=== PATIENT | female | born 1995 | race Caucasian/White ===

== ENCOUNTER 2017-07-06 17:30 | Inpatient (IN) | payer OTHER ==
[~2017-07-06 17:30] MED LIST: Bupivacaine/Epinephrine 0.25% 30 ML VIAL ONE; Lidocaine 2% PF 5 ML VIAL ONE
[2017-07-06] MEDS ORDERED: Ondansetron HCl/PF 4 MG/2 ML Vial IVP PRN (19:15)
[2017-07-06] MEDS ORDERED: Ibuprofen 800 MG TAB PO PRN (19:15)
[2017-07-06] MEDS ORDERED: Promethazine HCl 25 MG/ML VIAL IM PRN (19:15)
[2017-07-06] MEDS ORDERED: LR / Pitocin 40 units/1000 ml 1,000 ML IV PRN (19:15)
[2017-07-06] MEDS ORDERED: Lidocaine 1% (PF) 30 ML VIAL SC PRN (19:15)
[2017-07-06] MEDS ORDERED: Acetaminophen 500 MG TAB PO PRN (19:15)
[2017-07-06] MEDS ORDERED: Misoprostol 200 MCG TAB PR PRN (19:15)
[2017-07-06] MEDS ORDERED: LR 500 ML/Oxytocin 10 units 500 ML IV SCH (19:15)
[2017-07-06] MEDS ORDERED: HYDROcodone/Acetaminophen 5/325 mg Tablet PO PRN ×2 (19:15)
[2017-07-06 19:40] LABS: Hematocrit 40.8 % (36.0-47.0); Mean Platelet Volume 7.9 fL (7.4-10.4); Red Blood Cell (RBC) Count 4.55 mill/uL (4.20-5.40)
[2017-07-06 20:14] VITALS: BMI 22.1
[2017-07-06] MEDS: Lactated Ringer's 1,000 ML IV SCH (20:30)
--- NOTE | 2017-07-06 21:33 | PDOC.LDHP ---
Labor and Delivery H&P Chief complaint: other HPI: patient was seen in the clinic for a second opinion from the CPM at [facility]. Patient has been florencia for 3 days, with little rest. Pt is also having sharp pain on the left lower quadrant in betweeen contractions. Periodic exam from the CPM were reported by the patient as normal vitals for both mother and fetus. Pt reports continually urinating on herself, but stated she was certain it was urine. O bjective: At [facility], a bedside US showed tachycardia and oligohydraminos. Cervical exam /0 with hair palpated through cervix made me suspicious of SROM. A sterile speculum exam was performed with positive pooling and positive nitrazine. Pt is GBS neg. Because of the unknown time or lenght of rupture it was my clinical recommendation to be admitted to [facility] L&D for IOL. Patient agreed on POC and their primary CPM was contacted and notified. Current gestational age (weeks): 37 Due date: 07/27/17 Dating criteria: last menstrual period Grav: 1 Para: 0 OB History Details: BV, unknowntime of rupture Abnormal US findings: No Current medications: pre- vitamins Previous surgical history: none (sinus surgery) Allergies/Adverse Reactions: Allergies Allergy/AdvReac Type Severity Reaction Status Date / Time No Allergy Information Allergy Verified 07/06/17 20:59 Available Social history: none - Physical Exam Vital signs reviewed and normal: yes General: NAD Heart: RRR Lungs: CTAB Abdomen: gravid Extremeties: no edema FHT: category 1 - Vaginal Exam cm dilated: 2 Effacement: 75% Station: 0 - OB Labs Blood type: A RH: positive Antibody Screen: negative HIV: negative RPR: negative HEPSAg: negative 1 hour GCT: negative GBS: negative Urine drug screen: not done Rubella: immune - Assessment L&D Assessment: term rupture in membranes (for unknown length of time. Medically indicated IOL)
[2017-07-06] MEDS ORDERED: Fentanyl 4 mcg/Marc 0.1% Cadd 100 ML ONE (23:43)
[2017-07-07] MEDS: Fentanyl 4mcg/Marcaine 0.1% Cassette 100 ML EPIDURAL SCH ×2 (00:25→06:10)
[2017-07-07] MEDS: Lactated Ringer's 1,000 ML IV SCH ×3 (00:25→15:39)
[2017-07-07] MEDS ORDERED: Eucerin (Mineral Oil/Petrolatum,White) 30 gm Jar TOP PRN (00:42)
[2017-07-07] MEDS ORDERED: Lactated Ringer's 500 ML IV PRN (00:42)
[2017-07-07] MEDS ORDERED: Promethazine HCl 25 MG/ML VIAL IM PRN (00:42)
[2017-07-07] MEDS ORDERED: ePHEDrine/0.9% NaCl/PF SYRINGE 50 mg/10 ml SLOW IVP PRN (00:42)
[2017-07-07] MEDS ORDERED: Acetaminophen 325 MG TAB PO PRN (00:42)
[2017-07-07] MEDS ORDERED: Naloxone HCl 0.4 mg/ml Vial IVP PRN ×2 (00:42)
[2017-07-07] MEDS ORDERED: diphenhydrAMINE 50 MG/ML VIAL IVP PRN (00:42)
[2017-07-07] MEDS ORDERED: Ondansetron HCl/PF 4 MG/2 ML Vial IVP PRN ×2 (00:42→09:49)
[2017-07-07] MEDS ORDERED: Communication Order-Pharmacy FS SCH (00:45)
[2017-07-07] MEDS ORDERED: CEFAZOLIN/Water 2 GM/20 ML SYRINGE ONE (07:38)
[2017-07-07] MEDS ORDERED: Acetaminophen 500 MG TAB PO PRN (08:29)
[2017-07-07] MEDS ORDERED: Gentamicin 80 MG/2 ML VIAL IVPB SCH (08:30)
[2017-07-07 08:31] LABS: Base Excess -2.1 mEq/L (0 (+/- 2.5)); pH (venous) 7.37 (7.25-7.35)
--- NOTE | 2017-07-07 08:38 | PDOC.OPDEL ---
OB Operative/Delivery Note Delivery Dr/Surgeon: Sandhya Coppola CNM Pre-Delivery Diagnosis: medically indicated induction (for SROM for unknown length of time.) Procedure/Post Delivery Dx: spontaneous vaginal delivery Weeks gestation: 37 Anesthesia: epidural - Findings A Sex: male Weight: 6 lb 3.79 oz - 1 min: 7 - 5 min: 9 - Additional Findings/Plan Placenta delivered: spontaneous Repaired Obstetrical Laceration: none Estimated blood loss: 400mL Compilations/Other Findings: AT approximately 0440 this am the RN notified STEPHANIE of deep recurrent variable decelerations with contractions. FHT baseline was 145-150 bpms at that time. Pitocin was stopped and maternal oxygenation. Maternal fever prior to delivery and tachycardia. Antibiotics started for chorioamnionities and Neonatology team called to delivery. Following delivery of the fetus, maternal tachycardia was noted with a range of 140-160bpms. I doned sterile gloves and removed several small clots approximately 200ml worth from the lower uterine segment. pt tolerated procedure well. fundus was firm. Post delivery plan: routine recovery (Continue antibiotics for chorioamnionitis for the next 24 hours. Treat maternal fever with tylenol.)
[2017-07-07] MEDS ORDERED: Gentamicin Sulfate 290 MG in Sodium Chloride 0.9% 100 ML IVPB SCH ×2 (09:15→09:30)
[2017-07-07] MEDS ORDERED: Milk Of Magnesia 30 ML UDCUP PO PRN (09:49)
[2017-07-07] MEDS ORDERED: Measles/Mumps/Rubella 10 MCG/0.5 ML VIAL SC ONE (09:49)
[2017-07-07] MEDS ORDERED: Benzocaine/Menthol 20-0.5% 60 ML CAN TOP PRN (09:49)
[2017-07-07] MEDS ORDERED: Adacel (T-DAP) 0.5 ML VIAL IM ONE (09:49)
[2017-07-07] MEDS ORDERED: LR / Pitocin 40 units/1000 ml 1,000 ML IV SCH (09:49)
[2017-07-07] MEDS ORDERED: Lanolin Ointment 7 GM TUBE TOP PRN (09:49)
[2017-07-07] MEDS ORDERED: Misoprostol 200 MCG TAB VAG SCH (09:49)
[2017-07-07] MEDS ORDERED: Bisacodyl 10 MG SUPP PR PRN (09:49)
[2017-07-07] MEDS ORDERED: HYDROcodone/Acetaminophen 5/325 mg Tablet PO PRN ×2 (09:49)
[2017-07-07] MEDS ORDERED: Docusate Calcium (SURFAK) 240 MG CAP PO SCH (10:15)
[2017-07-07] MEDS ORDERED: Prenatal Vitamin 1 TAB PO SCH (10:15)
[2017-07-07] MEDS: Ibuprofen 800 MG TAB PO SCH ×2 (14:38→22:34)
[2017-07-07] MEDS: CEFAZOLIN/Water 2 GM/20 ML SYRINGE SLOW IVP SCH (17:25)
[2017-07-07] MEDS: Ferrous Sulfate 325 MG TAB PO SCH (17:26)
[2017-07-07] MEDS ORDERED: Sodium Chloride 0.9% 10 ML ONE (21:26)
[2017-07-07] MEDS: Docusate Calcium (SURFAK) 240 MG CAP PO SCH (22:35)
[2017-07-08] MEDS: CEFAZOLIN/Water 2 GM/20 ML SYRINGE SLOW IVP SCH ×2 (00:53→08:49)
[2017-07-08 06:06] LABS: Hematocrit 27.6 % (36.0-47.0); Mean Platelet Volume 6.9 fL (7.4-10.4); Red Blood Cell (RBC) Count 3.02 mill/uL (4.20-5.40); White Blood Cell (WBC) Count 13.9 thou/uL (4.8-10.8)
[2017-07-08] MEDS: Ibuprofen 800 MG TAB PO SCH ×3 (06:43→21:38)
[2017-07-08] MEDS: Prenatal Vitamin 1 TAB PO SCH (08:47)
[2017-07-08] MEDS: Docusate Calcium (SURFAK) 240 MG CAP PO SCH ×2 (08:47→21:38)
[2017-07-08] MEDS: Ferrous Sulfate 325 MG TAB PO SCH ×2 (08:48→17:53)
--- NOTE | 2017-07-08 11:37 | PDOC.PP ---
Post Progress Note Post Day #: 1 Subjective: pt is feeling well. a little soreness of her perineum. No concerns. Is pumping. PO intake tolerated: yes Flatus: yes Ambulation: yes Vital Signs (12 hours) Temp Pulse Resp BP 07/08/17 08:10 97.8 F 92 16 07/08/17 07:50 97.8 F 79 18 118/61 07/08/17 04:31 97.8 F 92 16 128/58 L 07/08/17 00:52 97.9 F 82 18 120/66 Weight Weight 133 lb - Physical Examination General: NAD Cardiovascular: no m/r/g, RRR Respiratory: clear to auscultation bilaterally Extremities: negative homans (B) Psychiatric: A&Ox3 Result Diagrams: 07/08/17 05:51 Additional Labs: Post Labs Hep Bs Antigen Non-Reactive S/CO (NonReactive) 07/06/17 19:34 (1) (spontaneous vaginal delivery) Code(s): O80 - ENCOUNTER FOR FULL-TERM UNCOMPLICATED DELIVERY Status: Acute (2) Prolonged premature rupture of membranes Code(s): O42.00 - KAYLEIGH ROM, ONSET LABOR W/N 24 HR OF RUPT, UNSP WEEKS OF GEST Status: Acute (3) Chorioamnionitis, delivered, current hospitalization Code(s): O41.1290 - CHORIOAMNIONITIS, UNSP TRIMESTER, NOT APPLICABLE OR UNSP Status: Acute - Assessment/Plan A: G1 now P1 SP following IOL for PROM with unknown length of time and resulting chorioamnionitis. NML exam - limited as pt was in NICU at time of physical exam P: discontinue antibiotics today - observe vital signs for next 24 hours to ensure adequate tx of chorioamnionitis. Discharge home tomorrow or bed and breakfast
[2017-07-09] MEDS: Ibuprofen 800 MG TAB PO SCH (04:15)
[2017-07-09 08:12] VITALS: BP 117/66; TEMP 98.6
[2017-07-09] MEDS: Prenatal Vitamin 1 TAB PO SCH (09:36)
[2017-07-09] MEDS: Ferrous Sulfate 325 MG TAB PO SCH (09:36)
[2017-07-09] MEDS: Docusate Calcium (SURFAK) 240 MG CAP PO SCH (09:36)
--- NOTE | 2017-07-09 10:00 | PDOC.PP ---
Post Progress Note Post Day #: 1 Subjective: doing well PO intake tolerated: yes Flatus: yes Ambulation: yes Vital Signs (12 hours) Temp Pulse Resp BP 07/09/17 07:00 98.6 F 75 20 117/66 Weight Weight 133 lb - Physical Examination General: NAD Cardiovascular: no m/r/g, RRR Respiratory: clear to auscultation bilaterally Abdominal: + bowel sounds Extremities: negative homans (B) Neurological: no gross focal deficits Psychiatric: A&Ox3 Result Diagrams: 07/08/17 05:51 Additional Labs: Post Labs Hep Bs Antigen Non-Reactive S/CO (NonReactive) 07/06/17 19:34 (1) (spontaneous vaginal delivery) Code(s): O80 - ENCOUNTER FOR FULL-TERM UNCOMPLICATED DELIVERY Status: Acute (2) Prolonged premature rupture of membranes Code(s): O42.00 - KAYLEIGH ROM, ONSET LABOR W/N 24 HR OF RUPT, UNSP WEEKS OF GEST Status: Acute (3) Chorioamnionitis, delivered, current hospitalization Code(s): O41.1290 - CHORIOAMNIONITIS, UNSP TRIMESTER, NOT APPLICABLE OR UNSP Status: Acute - Assessment/Plan A: nml ppd #2 exam on G1 now P1. vitals are all within normal limits, afebrile X 24 hours without antibiotics. Pain well controlled. P: Discharge home today, F/up JMic Coppola or Cory for visit at 6 weeks.
== END 2017-07-09 13:25 | disposition home or self-care (01) | DRG 775 ==
LOC: L&D/OP 17:30 → L&D 17:33 → 3SW 07-07 12:16
PROVIDERS: ADMIT Obstetrics & Gynecology; ATTEND Obstetrics & Gynecology
PROC: 3E0P3VZ Introduction of Hormone into Female Reproductive, Percutaneous Approach (ICD-10-PCS; 2017-07-06)
PROC: 10E0XZZ Delivery of Products of Conception, External Approach (ICD-10-PCS; principal; 2017-07-07)
DX: O42.92 Full-term premature rupture of membranes, unspecified as to length of time between rupture and onset of labor (principal); O41.1230 Chorioamnionitis, third trimester, not applicable or unspecified; O41.03X0 Oligohydramnios, third trimester, not applicable or unspecified; O76 Abnormality in fetal heart rate and rhythm complicating labor and delivery; O70.0 First degree perineal laceration during delivery; Z3A.37 37 weeks gestation of pregnancy; Z37.0 Single live birth
CPT/HCPCS: 36415; 82805; 85027; 86780; 87340; 87389; 88307; A4216; J1580; J2001; J7050; J7120